=== PATIENT | female | born 1930 | race Caucasian/White ===

== ENCOUNTER 2018-05-26 20:22 | Emergency (ER) | payer MEDICARE, OTHER ==
[2018-05-26 20:38] VITALS: BP 151/95; PULSE 66; O2SAT 95
[2018-05-26] MEDS ORDERED: Tylenol #3 Tablet PO ONE (20:56)
--- NOTE | 2018-05-26 21:02 | ERPHSYRPT ---
- History of Present Illness Time Seen by Provider: 05/26/18 20:35 Source: patient Exam Limitations: clinical condition Patient Subjective Stated Complaint: caught toe on carpet that was not straightened out, big toe on right foot Triage Nursing Assessment: Pt c/o of injuring right big toe, bruising, can't move, pulses normal Physician History: PATIENT WITH HISTORY OF CVA COMPLAINS OF STUBBING HER RIGHT GREAT TOE AGAINST CARPET SUSTAINING INJURY, PAIN AND SWELLING. Method of Injury: twisted Occurred: just prior to arrival Quality: constant Severity of Pain-Max: moderate Severity of Pain-Current: moderate Lower Extremities Pain: 5th toe: right Modifying Factors: Improves With: movement Associated Symptoms: unable to bear weight Allergies/Adverse Reactions: Penicillins Allergy (Verified 05/26/18 20:39) mannitol [From Reclast] Adverse Reaction (Verified 05/26/18 20:39) water for injection,sterile [From Reclast] Adverse Reaction (Verified 05/26/18 20:39) zoledronic acid [From Reclast] Adverse Reaction (Verified 05/26/18 20:39) Home Medications: Cholecalciferol (Vitamin D3) [Vitamin D-3] 2,000 unit PO DAILY 06/26/15 [History ] Cyanocobalamin (Vitamin B-12) [B-12] 1,000 mcg PO DAILY 06/26/15 [History] Rivaroxaban [Xarelto] 20 mg PO HS 06/26/15 [History] Ketorolac Tromethamine [Toradol] 10 mg PO DAILY 05/26/18 [History] Hx Tetanus, Diphtheria Vaccination/Date Given: Yes (UP TO DATE) Hx Influenza Vaccination/Date Given: No Hx Pneumococcal Vaccination/Date Given: No - Review of Systems Musculoskeletal: Injury, Joint Pain, Joint Swelling - Past Medical History Pertinent Past Medical History: Yes Neurological History: No Pertinent History Cardiac History: No Pertinent History, High Cholesterol Respiratory History: Asthma Endocrine Medical History: No Pertinent History Musculoskeletal History: Osteoarthritis Psycho-Social History: Anxiety Other Medical History: PT. HAS HAD BILATERAL TKAS. 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 - Past Surgical History Past Surgical History: Yes Musculoskeletal: Joint Replacement, Orthopedic Surgery Female Surgical History: Hysterectomy - Social History Smoking Status: Never smoker Exposure to second hand smoke: No Drug Use: none Patient Lives Alone: No - Nursing Vital Signs Nursing Vital Signs: Initial Vital Signs Temperature 98.7 F 05/26/18 20:28 Pulse Rate 66 05/26/18 20:28 Blood Pressure 151/95 05/26/18 20:28 O2 Sat by Pulse Oximetry 95 05/26/18 20:28 Pain Scale Pain Intensity 6 - Physical Exam General Appearance: no apparent distress Foot Exam: right foot: limited range of motion, pain, soft tissue tenderness ( TENDERNESS DISTAL ASPECT PROXIMAL PHALANGX RIGHT GREAT TOE, NO ECCHYMOSIS, RIGHT PEDIS PULSE 2+) Neuro/Tendon Exam: normal sensation, normal motor functions SpO2: 95 Oxygen Delivery: Room Air - Radiology Exams Right Foot X-ray Interpretation: Interpreted by me (MINIMAL DISPLACED FRACTURE DISTAL ASPECT PROXIMAL PHALANGX, RIGHT GREAT TOE) Ordered Tests: Active Orders 24 hr Category Date Time Status FOOT (MINIMUM 3 VIEWS) Stat Exams 05/26/18 20:57 Taken Medication Summary Discontinued Medications Generic Name Dose Route Start Last Admin Trade Name Freq PRN Reason Stop Dose Admin Acetaminophen/Codeine Phosphate 1 tab 05/26/18 20:56 05/26/18 21:31 Tylenol #3 Tablet PO 05/26/18 20:57 1 tab STAT ONE Administration Acetaminophen/Codeine Phosphate Confirm 05/26/18 21:29 Tylenol #3 Tablet Administered 05/26/18 21:30 Dose 1 tab .ROUTE .STK-MED ONE - Progress Progress: pain not gone completely Progress Note: 05/26/18 21:40 DELVIN TAPED RIGHT GREAT TOE AND 2ND TOE, PLACED IN BUNION SHOE Counseled pt/family regarding: diagnosis, need for follow-up - Departure Time of Disposition: 21:59 Departure Disposition: Home Clinical Impression: FRACTURE RIGHT GREAT TOE Condition: Stable Critical Care Time: No Referrals: [facility] [NON-STAFF PHY W/O PRIVILEGES] - Additional Instructions: MAINTAIN TOES RIGHT 1ST AND 2ND TOES DELVIN TAPED TOGETHER, UNTIL EVALUATED BY ORTHOPEDIC SURGEON. FOLLOWUP AT [facility] [address] [place] [address] , , TOMORROW FOR ORTHOPEDIC CONSULATION. AMBULATE WITH WALKER ASSISTANCE. NORCO 5/325 EVERY 6 HOURS NEEDED FOR PAIN Prescriptions: Hydrocodone Bit/Acetaminophen [[place] 5-325 Tablet] 1 each PO Q6H PRN PRN #15 tablet MDD 4 PRN Reason: Pain
[2018-05-26] MEDS ORDERED: Tylenol #3 Tablet ONE (21:29)
[2018-05-26] MEDS ORDERED: NORCO 5/325 MG PO ONE (21:52)
[2018-05-26] MEDS ORDERED: NORCO 5/325 MG ONE (21:56)
--- NOTE | 2018-05-27 08:41 | XRAY ---
Indication: Great toe pain following injury. Comparison: None 3 nonweightbearing views of the right foot demonstrates minimally displaced acute oblique fracture involving the proximal phalanx of the great toe distally with interarticular extension and soft tissue swelling. Elsewhere osteopenia, mild midfoot degenerative arthropathy, moderate sized heel spurs, old hindfoot fracture with intact orthopedic hardware, distal tibia bone island, and lower leg soft tissue calcified granulomas.
== END 2018-05-26 22:08 | disposition home or self-care (01) ==
LOC: ED 20:22
DX: S92.411A Displaced fracture of proximal phalanx of right great toe, initial encounter for closed fracture (principal); W22.8XXA Striking against or struck by other objects, initial encounter; E78.00 Pure hypercholesterolemia, unspecified; J45.909 Unspecified asthma, uncomplicated; F41.9 Anxiety disorder, unspecified; Z86.718 Personal history of other venous thrombosis and embolism; M19.90 Unspecified osteoarthritis, unspecified site; Z79.01 Long term (current) use of anticoagulants; Z79.899 Other long term (current) drug therapy
CPT/HCPCS: 73630; 99283; A9270-GY

== ENCOUNTER 2018-10-06 17:47 | Emergency (ER) | payer MEDICARE, OTHER ==
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
[2018-10-06] MEDS ORDERED: MORPHINE SULFATE 4 MG INJ IV ONE ×2 (20:06→21:28)
[2018-10-06] MEDS ORDERED: Zofran 4 MG/2 ML VIAL IV ONE (20:06)
[2018-10-06] MEDS ORDERED: TYLENOL 325 MG PO ONE (20:06)
[2018-10-06] MEDS ORDERED: Zofran 4 MG/2 ML VIAL ONE (20:18)
[2018-10-06] MEDS ORDERED: MORPHINE SULFATE 4 MG INJ ONE ×2 (20:19→21:32)
[2018-10-06] MEDS ORDERED: TYLENOL 325 MG ONE (20:19)
[2018-10-06] MEDS ORDERED: Hydromorphone 1 mg/ml Ampule IV ONE (22:01)
[2018-10-06] MEDS ORDERED: Hydromorphone 1 mg/ml Ampule ONE (22:07)
[2018-10-06] MEDS ORDERED: NORCO 5/325 MG PO ONE (22:13)
[2018-10-06] MEDS ORDERED: NORCO 5/325 MG ONE (22:21)
[2018-10-06] MEDS ORDERED: ROCEPHIN 1 Gm-D5w 50 ml Bag** 1 G/50 ML IVPB IV STA (22:24)
[2018-10-06] MEDS ORDERED: ROCEPHIN 1 Gm-D5w 50 ml Bag** 1 G/50 ML IVPB IV ONE (22:28)
[2018-10-06] MEDS ORDERED: BACIGUENT PACKET ONE (22:28)
[2018-10-06] MEDS ORDERED: BACIGUENT PACKET TP ONE (22:31)
[2018-10-06 23:15] VITALS: BP 160/79; PULSE 64; O2SAT 93
--- NOTE | 2018-10-07 08:42 | XRAY ---
Indication: Pain/headache following fall. Blood thinner therapy. Multiple contiguous axial images obtained through the head without contrast. Comparison: None Age-appropriate global atrophy and minimal periventricular degenerative micro-ischemia bilaterally. No acute intracranial hemorrhage, abnormal extra-axial fluid collection, or mass effect. Bony calvarium intact. Small fluid leveling in the right sphenoid sinus. Remaining visualized paranasal sinuses and mastoid air cells are clear. Impression: 1. Nonacute senile brain. 2. Incidental paranasal sinus disease. Comment: Preliminary interpretation was made by [facility]. No discrepancy. CT DI 49.41
--- NOTE | 2018-10-07 08:49 | XRAY ---
Indication: Pain following fall. Blood thinner therapy. Multiple contiguous axial images obtained through the cervical spine. Sagittal and coronal reformatted images obtained. Comparison: None Age-related osteopenia. Axial images negative for acute fracture, suspicious bony lesions, or spinal canal stenosis. Mild/moderate C3-C7 degenerative endplate spurring, mild/moderate multilevel bilateral degenerative facet arthropathy, and atlantoaxial degenerative arthropathy. Incidental C7 cervical ribs, T1 vertebral hemangioma, and metallic clip anterior to C6-C7 interspace. There is noncalcified soft tissue masses protruding through the left T1-T2 foramen measuring 1.5 x 1.6 cm and left T2-T3 foramen measuring 2.5 x 2.3 cm favoring nerve sheath tumors. Sagittal and coronal reformatted images demonstrates 2 mm C3, 3 mm C7, and 3 mm T1 anterolisthesis. No acute compression fracture or jumped facet. Normal appearing craniocervical junction. Visualized noncontrasted soft tissues demonstrates mild carotid calcifications bilaterally and biapical pulmonary fibrosis/scarring with a few tiny calcified granulomas. CT head reported separately. Impression: 1. Osteopenia and multilevel degenerative spondylosis including grade 1 C3/C7/T1 spondylolisthesis. 2. Negative acute fracture. 3. 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 MRI may yield further information. Comment: Preliminary interpretation was made by [facility]. No discrepancy. CT DI 56.20
--- NOTE | 2018-10-07 08:55 | XRAY ---
Indication: Pain following fall. Comparison: None 5 views of the lumbar spine demonstrates 5 lumbar vertebral segments with osteopenia, mild levorotoscoliosis centered at L2, L4-L5 fusion with intact posterior spinal hardware, L4 laminectomy, moderate/advanced multilevel thoracolumbar degenerative spondylosis greatest L3-L4 level, grade 1 L3 spondylolisthesis, left-sided spinal stimulator device with leads, and tiny pulmonary calcified granulomas. No other bony, articular, or soft tissue abnormalities. Impression: Nonacute lumbar spine with chronic features. Comment: Preliminary interpretation was made by [facility] who reports T11-L4 fractures which I do not appreciate.
--- NOTE | 2018-10-07 08:57 | XRAY ---
Indication: Pain following fall. Comparison: None AP pelvis and 2 views of the right hip demonstrates osteopenia, lower lumbar fusion with spinal hardware, partially visualized left spinal stimulator device/leads, and a few pelvic phleboliths. No other bony, articular, or soft tissue abnormalities.
== END 2018-10-06 23:22 | disposition home or self-care (01) ==
LOC: ED 17:47
DX: S61.212A Laceration without foreign body of right middle finger without damage to nail, initial encounter (principal); S61.214A Laceration without foreign body of right ring finger without damage to nail, initial encounter; S61.511A Laceration without foreign body of right wrist, initial encounter; S00.93XA Contusion of unspecified part of head, initial encounter; S51.812A Laceration without foreign body of left forearm, initial encounter; M25.551 Pain in right hip; M54.2 Cervicalgia; R51 Headache; M54.5 Low back pain; W01.0XXA Fall on same level from slipping, tripping and stumbling without subsequent striking against object, initial encounter; Y93.E9 Activity, other interior property and clothing maintenance; Y92.007 Garden or yard of unspecified non-institutional (private) residence as the place of occurrence of the external cause; Z79.899 Other long term (current) drug therapy
CPT/HCPCS: 36000; 70450; 72110; 72125; 73502; 96374; 96375; 96376; 99284; J0696; J1170; J2270; J2405; A9270-GY

== ENCOUNTER 2020-01-05 16:01 | Emergency (ER) | payer MEDICARE, OTHER ==
[2020-01-05 16:21] VITALS: BP 157/95; PULSE 94; O2SAT 96
--- NOTE | 2020-01-05 17:11 | ERPHSYRPT ---
- History of Present Illness Patient Subjective Stated Complaint: Laceration to left hand 5th digit from fall Triage Nursing Assessment: Patient brought back to ED via w/c and transferred self to bed. Patient A+O x3. Patient's skin pink, warm and dry. Patient states she was carrying a wooden box she fell causing the box to smash finger into the concrete. Patient has skin flad to left hand 5th digit. Patient complains of constant throbbing pain 10/10. Physician History: Patient is an 89-year-old female who presents with a complaint of pain after an injury to her left fifth finger he was carrying a box that contained books and was quite heavy when it dropped on the distal phalanx causing a burst laceration and great pain Occurred: just prior to arrival Method of Injury: direct blow Quality: constant Severity of Pain-Max: moderate Severity of Pain-Current: moderate Extremities Pain Location: 5th finger: left (Official 2 cm burst type laceration to the distal pad of the left distal phalanx fifth) Modifying Factors: Improves With: cold therapy Allergies/Adverse Reactions: Penicillins Allergy (Verified 01/05/20 16:14) mannitol [From Reclast] Adverse Reaction (Verified 01/05/20 16:14) water for injection,sterile [From Reclast] Adverse Reaction (Verified 01/05/20 16:14) zoledronic acid [From Reclast] Adverse Reaction (Verified 01/05/20 16:14) Home Medications: Cholecalciferol (Vitamin D3) [Vitamin D-3] 2,000 unit PO DAILY 06/26/15 [History ] Cyanocobalamin (Vitamin B-12) [B-12] 1,000 mcg PO DAILY 06/26/15 [History] Rivaroxaban [Xarelto] 20 mg PO HS 06/26/15 [History] Paroxetine HCl 20 mg [Paxil 20 MG] 20 mg PO DAILY 10/06/18 [History] Hx Tetanus, Diphtheria Vaccination/Date Given: Yes (last year) Hx Influenza Vaccination/Date Given: No Hx Pneumococcal Vaccination/Date Given: Yes Immunizations Up to Date: Yes - Review of Systems Constitutional: No Fever, No Chills Eyes: No Symptoms Ears, Nose, & Throat: No Symptoms Respiratory: No Cough, No Dyspnea Cardiac: No Chest Pain, No Edema, No Syncope Abdominal/Gastrointestinal: No Abdominal Pain, No Nausea, No Vomiting, No Diarrhea Genitourinary Symptoms: No Dysuria Musculoskeletal: No Back Pain, No Neck Pain Skin: No Rash Neurological: No Dizziness, No Focal Weakness, No Sensory Changes Psychological: No Symptoms Endocrine: No Symptoms All Other Systems: Reviewed and Negative - Past Medical History Pertinent Past Medical History: Yes Neurological History: No Pertinent History Cardiac History: No Pertinent History, High Cholesterol Respiratory History: Asthma Endocrine Medical History: No Pertinent History Musculoskeletal History: Osteoarthritis Psycho-Social History: Anxiety Other Medical History: PT. HAS HAD BILATERAL TKAS. 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 - Past Surgical History Past Surgical History: Yes Musculoskeletal: Joint Replacement, Orthopedic Surgery Female Surgical History: Hysterectomy - Social History Smoking Status: Never smoker Exposure to second hand smoke: No Drug Use: none Patient Lives Alone: Yes - Female History Hx Now: No - Nursing Vital Signs Nursing Vital Signs: Initial Vital Signs Temperature 98.1 F 01/05/20 16:16 Pulse Rate 94 H 01/05/20 16:16 Respiratory Rate 18 01/05/20 16:16 Blood Pressure 157/95 01/05/20 16:16 O2 Sat by Pulse Oximetry 96 01/05/20 16:16 Pain Scale Pain Intensity 10 - Physical Exam General Appearance: alert Eyes, Ears, Nose, Throat Exam: moist mucous membranes Neck Exam: non-tender, supple Cardiovascular/Respiratory Exam: chest non-tender, normal breath sounds, regular rate/rhythm, no respiratory distress Abdominal Exam: non-tender, No guarding Back Exam: normal inspection, No vertebral tenderness Shoulder Exam: normal inspection Elbow/Forearm Exam: normal inspection Hand Exam: normal ROM (Normal range of motion), bone tenderness, laceration ( Ration to the distal pad of the fifth finger.), soft tissue tenderness Neuro/Tendon Exam: normal sensation, normal motor functions Mental Status Exam: alert, oriented x 3, cooperative Skin Exam: normal color, warm, dry SpO2: 96 Procedures - Laceration/Wound Repair Left Finger Wound Location: Left, hand (Distal pad of the left fifth finger) Wound Length (cm): 1.5 Wound's Depth, Shape: superficial, linear Wound Explored: no foreign body noted Irrigated: Yes Hibiclens Prep: Yes Volume Anesthetic (ccs): 0 (The laceration of the distal pad did not require sutures wound was closed with Steri-Strips) Wound Debrided: minimal Wound Repaired With: Steri-strips Layer Closure?: No Sterile Dressing Applied?: Yes Splint Applied?: No Sling Applied?: No Progress: 01/05/20 17:13 The wound was closed by the nurse with Steri-Strips post application exam by the physician showed him to be well applied skin edges well approximated vascular or neuro compromise - Course Nursing assessment & vital signs reviewed: Yes - Radiology Exams Hand X-ray Interpretation: Interpreted by me, Negative (80 for fractures or dislocation of the left fifth finger) Ordered Tests: Active Orders 24 hr Category Date Time Status FINGER(S) Stat Exams 01/05/20 17:03 Taken - Progress Progress: improved - Departure Departure Disposition: Home Clinical Impression: Laceration of finger of left hand Condition: Stable Critical Care Time: No Referrals: Criss GUTIERREZ [Primary Care Provider] - Instructions: Laceration Repair Prescriptions: Hydrocodone/APAP 5-325 Tab^^^ [[place] 5-325 Tablet^^^] 1 tab PO Q6HPRN PRN #10 tablet MDD 6 PRN Reason: Pain
--- NOTE | 2020-01-05 17:19 | XRAY ---
Indication: Pain and bruising following fall/injury. Comparison: None 3 views of the left 5th finger demonstrates osteopenia and moderate DIP degenerative changes. No other bony, articular, or soft tissue abnormalities.
== END 2020-01-05 18:05 | disposition home or self-care (01) ==
LOC: ED 16:01
DX: S61.217A Laceration without foreign body of left little finger without damage to nail, initial encounter (principal); W20.8XXA Other cause of strike by thrown, projected or falling object, initial encounter; Y93.89 Activity, other specified; Y92.89 Other specified places as the place of occurrence of the external cause; M79.645 Pain in left finger(s); Z79.899 Other long term (current) drug therapy
CPT/HCPCS: 73140; 99283

== ENCOUNTER 2020-01-07 10:52 | Emergency (ER) | payer MEDICARE, OTHER ==
--- NOTE | 2020-01-07 11:15 | ERPHSYRPT ---
- History of Present Illness Time Seen by Provider: 01/07/20 11:10 Source: patient Exam Limitations: no limitations Patient Subjective Stated Complaint: pt here for wound recheck, she states she has avulsion to left ring finger, she hurt finger sunday, she states she was cleaning today and got fur cleaner on dressing and wants wound cleaned, Triage Nursing Assessment: pt alert, walked in, has dression to finger, dression removed, and steri stips in place, no redness or swelling notd Physician History: Patient is a 89-year-old female presents to our ED to rewrap her left fifth digit. Patient accidentally got fur cleaner on the dressing. Patient is requesting the wound to be cleaned and redressed. No trauma or injury. Patient has other complaints or concerns at this time. Occurred: just prior to arrival Method of Injury: other Quality: constant Severity of Pain-Max: none Severity of Pain-Current: none Associated Symptoms: none Allergies/Adverse Reactions: Penicillins Allergy (Verified 01/07/20 11:05) mannitol [From Reclast] Adverse Reaction (Verified 01/07/20 11:05) water for injection,sterile [From Reclast] Adverse Reaction (Verified 01/07/20 11:05) zoledronic acid [From Reclast] Adverse Reaction (Verified 01/07/20 11:05) Home Medications: Cholecalciferol (Vitamin D3) [Vitamin D-3] 2,000 unit PO DAILY 06/26/15 [History ] Cyanocobalamin (Vitamin B-12) [B-12] 1,000 mcg PO DAILY 06/26/15 [History] Rivaroxaban [Xarelto] 20 mg PO HS 06/26/15 [History] Paroxetine HCl 20 mg [Paxil 20 MG] 20 mg PO DAILY 10/06/18 [History] Hx Tetanus, Diphtheria Vaccination/Date Given: Yes Hx Influenza Vaccination/Date Given: No Hx Pneumococcal Vaccination/Date Given: Yes Immunizations Up to Date: Yes - Review of Systems Constitutional: No Fever, No Chills Eyes: No Symptoms Ears, Nose, & Throat: No Symptoms Respiratory: No Cough, No Dyspnea Cardiac: No Chest Pain, No Edema, No Syncope Abdominal/Gastrointestinal: No Abdominal Pain, No Nausea, No Vomiting, No Diarrhea Genitourinary Symptoms: No Dysuria Musculoskeletal: No Back Pain, No Neck Pain Skin: No Rash Neurological: No Dizziness, No Focal Weakness, No Sensory Changes Psychological: No Symptoms Endocrine: No Symptoms All Other Systems: Reviewed and Negative - Past Medical History Pertinent Past Medical History: Yes Neurological History: No Pertinent History Cardiac History: No Pertinent History, High Cholesterol Respiratory History: Asthma Endocrine Medical History: No Pertinent History Musculoskeletal History: Osteoarthritis Psycho-Social History: Anxiety Other Medical History: PT. HAS HAD BILATERAL TKAS. 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 - Past Surgical History Past Surgical History: Yes Musculoskeletal: Joint Replacement, Orthopedic Surgery Female Surgical History: Hysterectomy - Social History Smoking Status: Never smoker Exposure to second hand smoke: No Drug Use: none Patient Lives Alone: Yes - Female History Hx Last Menstrual Period: post - Nursing Vital Signs Nursing Vital Signs: Initial Vital Signs Temperature 97 F 01/07/20 10:59 Pulse Rate 74 01/07/20 10:59 Respiratory Rate 20 01/07/20 10:59 Blood Pressure 143/77 01/07/20 10:59 O2 Sat by Pulse Oximetry 96 01/07/20 10:59 Pain Scale Pain Intensity 5 - Physical Exam General Appearance: alert Eyes, Ears, Nose, Throat Exam: moist mucous membranes Neck Exam: non-tender, supple Cardiovascular/Respiratory Exam: chest non-tender, normal breath sounds, regular rate/rhythm, no respiratory distress Abdominal Exam: non-tender, No guarding Back Exam: normal inspection, No vertebral tenderness Shoulder Exam: normal inspection Elbow/Forearm Exam: normal inspection Wrist Exam: normal inspection Hand Exam: normal inspection Neuro/Tendon Exam: normal sensation, normal motor functions Mental Status Exam: alert, oriented x 3, cooperative Skin Exam: normal color, warm, dry SpO2 Interpretation: normal SpO2: 96 O2 Delivery: Room Air - Course Nursing assessment & vital signs reviewed: Yes - Progress Progress: improved Progress Note: 01/07/20 11:14 Wound was irrigated and redressed by RN. There is no interval injury. Patient will be discharged home. No need for further work-up. Counseled pt/family regarding: need for follow-up - Departure Departure Disposition: Home Clinical Impression: Visit for wound check Condition: Good Critical Care Time: No Referrals: Criss GUTIERREZ [Primary Care Provider] - Additional Instructions: Discharge/Care Plan OSITO LEUNG was seen on 01/07/20 in the Emergency Room. The patient was counseled regarding Diagnosis,Lab results, Imaging studies, need for follow up and when to return to the Emergency Room. Prescriptions given: Discharge Note I have spoken with the patient and/or caregivers. I have explained the patient' s condition, diagnosis and treatment plan based on the information available to me at this time. I have answered the patient's and/or caregiver's questions and addressed any concerns. The patient and/or caregivers have as good understanding of the patient's diagnosis, condition and treatment plan as can be expected at this point. The vital signs have been stable. The patient's condition is stable and appropriate for discharge from the emergency department. The patient will pursue further outpatient evaluation with the primary care physician or other designated or consulting physician as outlined in the discharge instructions. The patient and/or caregivers are agreeable to this plan of care and follow-up instructions have been explained in detail. The patient and/or caregivers have received these instruction. The patient/and or caregivers are aware that any significant change in condition or worsening of symptoms should prompt an immediate return to this or the closest emergency department or call 911.
[2020-01-07 11:45] VITALS: BP 137/79; PULSE 78; O2SAT 97
[2020-01-07] MEDS ORDERED: GlucaGen 1 MG ONE (17:11)
[2020-01-07] MEDS ORDERED: D50W 50 ml Abboject IV ONE (17:29)
[2020-01-07] MEDS ORDERED: Dextrose 5% -0.45 NaCl 1000 ML 0 ML IV ONE (17:31)
== END 2020-01-07 11:45 | disposition home or self-care (01) ==
LOC: ED 10:52
DX: S61.217D Laceration without foreign body of left little finger without damage to nail, subsequent encounter (principal); Z48.00 Encounter for change or removal of nonsurgical wound dressing
CPT/HCPCS: 99283; J1610

== ENCOUNTER 2020-01-15 21:35 | Emergency (ER) | payer MEDICARE, OTHER ==
--- NOTE | 2020-01-15 22:16 | ERPHSYRPT ---
- History of Present Illness Time Seen by Provider: 01/15/20 22:13 Source: patient Exam Limitations: no limitations Physician History: About 2 hours ago at home pt stubbed her left large toe on the hallway carpet with resultant pain and swelling in the left large toe. pt denies previous injury and numbness of the left large toe. tetanus is within the past 5 years. Allergies/Adverse Reactions: Penicillins Allergy (Intermediate, Verified 01/15/20 22:18) Hives mannitol [From Reclast] Adverse Reaction (Severe, Verified 01/15/20 22:18) water for injection,sterile [From Reclast] Adverse Reaction (Severe, Verified 22:18) zoledronic acid [From Reclast] Adverse Reaction (Severe, Verified 01/15/20 22:18 ) Home Medications: Cholecalciferol (Vitamin D3) [Vitamin D-3] 2,000 unit PO DAILY 06/26/15 [History ] Cyanocobalamin (Vitamin B-12) [B-12] 1,000 mcg PO DAILY 06/26/15 [History] Rivaroxaban [Xarelto] 20 mg PO HS 06/26/15 [History] Paroxetine HCl 20 mg [Paxil 20 MG] 20 mg PO DAILY 10/06/18 [History] Magnesium Oxide 400 mg PO DAILY 01/15/20 [History] Potassium Chloride [K-Dur] 10 meq PO BID 01/15/20 [History] Pravastatin Sodium 40 mg PO DAILY 01/15/20 [History] Hx Tetanus, Diphtheria Vaccination/Date Given: Yes Hx Influenza Vaccination/Date Given: No Hx Pneumococcal Vaccination/Date Given: Yes - Review of Systems Musculoskeletal: Other (left large toe pain tonight) - Past Medical History Pertinent Past Medical History: Yes Neurological History: No Pertinent History Cardiac History: No Pertinent History, High Cholesterol Respiratory History: Asthma Endocrine Medical History: No Pertinent History Musculoskeletal History: Osteoarthritis Psycho-Social History: Anxiety Other Medical History: PT. HAS HAD BILATERAL TKAS. 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 - Past Surgical History Past Surgical History: Yes Musculoskeletal: Joint Replacement, Orthopedic Surgery Female Surgical History: Hysterectomy - Social History Smoking Status: Never smoker Exposure to second hand smoke: No Drug Use: none Patient Lives Alone: Yes - Nursing Vital Signs Nursing Vital Signs: Initial Vital Signs Temperature 98.2 F 01/15/20 22:06 Pulse Rate 67 01/15/20 22:06 Respiratory Rate 16 01/15/20 22:06 Blood Pressure 177/95 01/15/20 22:06 O2 Sat by Pulse Oximetry 95 01/15/20 22:06 Pain Scale Pain Intensity 7 - Physical Exam General Appearance: alert Hips Exam: left: normal range of motion Legs Exam: left leg: normal range of motion Knees Exam: left knee: normal range of motion Ankle Exam: left ankle: normal range of motion Foot Exam: left foot: soft tissue tenderness (left large toe has mild edema and tenderness with a minimal abrasion & minimal amount of blood at the proximal nail border.) Neuro/Tendon Exam: normal sensation Mental Status Exam: alert, cooperative Skin Exam: No cyanosis SpO2 Interpretation: normal SpO2: 95 O2 Delivery: Room Air - Course Nursing assessment & vital signs reviewed: Yes - Radiology Exams Left Foot X-ray Interpretation: Interpreted by me (no fx.) Ordered Tests: Active Orders 24 hr Category Date Time Status Wound Care STAT Care 01/15/20 23:08 Active FOOT (MINIMUM 3 VIEWS) Stat Exams 01/15/20 22:21 Taken Medication Summary Discontinued Medications Generic Name Dose Route Start Last Admin Trade Name Jasonq PRN Reason Stop Dose Admin Hydrocodone Bitart/Acetaminophen 2 tab 01/15/20 22:21 01/15/20 22:25 [place] 5/325 Mg PO 01/15/20 22:22 2 tab STAT ONE Administration Hydrocodone Bitart/Acetaminophen Confirm 01/15/20 22:24 [place] 5/325 Mg Administered 01/15/20 22:25 Dose 2 tab .ROUTE .STK-MED ONE - Progress Progress: unchanged - Departure Departure Disposition: Home Clinical Impression: sprain of left large toe Condition: Stable Critical Care Time: No Referrals: Criss GUTIERREZ [Primary Care Provider] - Instructions: Toe Injury (DC) Additional Instructions: Elevate left foot above heart level for 24 hours. Follow up with private doctor tomorrow. Neosporin & bandage to left large toe abrasion for the next week.
[2020-01-15] MEDS ORDERED: NORCO 5/325 MG PO ONE (22:21)
[2020-01-15] MEDS ORDERED: NORCO 5/325 MG ONE (22:24)
[2020-01-15 23:50] VITALS: BP 185/99; O2SAT 96
[2020-01-16 00:08] VITALS: PULSE 95
--- NOTE | 2020-01-16 09:10 | XRAY ---
Indication: Great toe pain following injury. Comparison: None 3 nonweightbearing views of the left foot demonstrates osteopenia, small posterior heel spur, and minimal 1st MTP degenerative changes. Plantar aponeurosis calcifications probable sequela to old injury/inflammation. No other bony, articular, or soft tissue abnormalities.
== END 2020-01-16 00:05 | disposition home or self-care (01) ==
LOC: ED 21:35
DX: S93.502A Unspecified sprain of left great toe, initial encounter (principal); M79.675 Pain in left toe(s); W22.8XXA Striking against or struck by other objects, initial encounter; Y93.9 Activity, unspecified; Y92.89 Other specified places as the place of occurrence of the external cause; Z79.899 Other long term (current) drug therapy; E78.00 Pure hypercholesterolemia, unspecified; M19.90 Unspecified osteoarthritis, unspecified site; Z86.718 Personal history of other venous thrombosis and embolism
CPT/HCPCS: 73630; 99284; A9270-GY